=== PATIENT | female | born 1945 | race Caucasian/White ===

== ENCOUNTER 2020-06-13 23:25 | Emergency (ER) | payer MEDICARE, OTHER | END 2020-06-14 03:45 | disposition other institution (70) | LOC: FER 23:25 | DX: S06.6X9A Traumatic subarachnoid hemorrhage with loss of consciousness of unspecified duration, initial encounter (principal); S01.01XA Laceration without foreign body of scalp, initial encounter; I10 Essential (primary) hypertension; Z79.82 Long term (current) use of aspirin; Z79.899 Other long term (current) drug therapy; Z86.69 Personal history of other diseases of the nervous system and sense organs; W19.XXXA Unspecified fall, initial encounter | CPT/HCPCS: 70450; 96374; 96375; J2270; J2405 ==